=== PATIENT | male | born 2000 | race Caucasian/White ===

== ENCOUNTER 2019-01-20 21:03 | Emergency (ER) | payer BC ==
[~2019-01-20] VITALS: Ht 180.3 cm; Wt 68.0 kg
[2019-01-20 21:09] VITALS: BP 99/51
== END 2019-01-20 23:00 | disposition home or self-care (01) ==
LOC: ED 22:40
DX: F10.120 Alcohol abuse with intoxication, uncomplicated (principal); Y90.9 Presence of alcohol in blood, level not specified
CPT/HCPCS: 99283